=== PATIENT | female | born 1960 | race Caucasian/White ===

== ENCOUNTER 2018-07-26 22:42 | Emergency (ER) | payer SELFPAY ==
[~2018-07-26] VITALS: Ht 165.1 cm; Wt 81.8 kg
[~2018-07-26 22:42] MED LIST: NO HOME MEDS; PREVACID30 M2 OR; REGLAN10 MG OR; TORADOL OR; ZPAK OR
[2018-07-26 23:47] LABS: HEMATOCRIT 38.3 % (37.0-47.0); HEMOGLOBIN 12.7 g/dl (12.0-16.0); IMMATURE GRANULOCYTES 0.4 % (0.0-5.0); MEAN CELL VOLUME 90.8 fL CALC (80.0-100.0); MEAN CORPUSCULAR HGB 30.1 pG CALC (26.0-32.0); MEAN CORPUSCULAR HGB CONC 33.2 g/L CALC (32.0-36.0); NEUT# 4.24 thou/uL (2.00-7.15); RED BLOOD COUNT 4.22 mill/uL (4.20-5.60); RED CELL DISTRI WIDTH 13.2 % (11.5-15.5)
[2018-07-26 23:51] LABS: BARBITURATES NEGATIVE (NEGATIVE); COCAINE NEGATIVE (NEGATIVE); METHADONE NEGATIVE (NEGATIVE); OXCYCODONE NEGATIVE (NEGATIVE); TETRAHYDROCANNABIONOL NEGATIVE (NEGATIVE); TRICYLIC ANTIDEPRESSANTS NEGATIVE (NEGATIVE)
[2018-07-26] MEDS ORDERED: MULTIVITAMI1 PO (23:52)
[2018-07-27 00:02] LABS: ALBUMIN 4.5 g/dL (3.2-5.0); ALKALINE PHOSPHATASE 94 u/l (38-126); ANION GAP 17 (6-22 (CALC)); BUN 18 mg/dL (7-17); BUN/CREATININE RATIO 24 (12-20 (CALC)); CARBON DIOXIDE 23 mmol/l (22-30); CHLORIDE 106 mmol/l (95-108); CREATININE 0.7 mg/dL (0.5-1.0); GFR > 60 ML/MIN (>=60 (CALC)); GFR FOR AFR.AMER. > 60 ML/MIN (>=60 (CALC)); POTASSIUM 3.9 mmol/l (3.5-5.1); SGOT/AST 18 u/l (14-36); SODIUM 142 mmol/l (137-146); TOTAL PROTEIN 7.3 g/dL (6.3-8.2)
[2018-07-27 00:11] LABS: URINE BILIRUBIN - DIPSTICK NEGATIVE (NEGATIVE); URINE BLOOD DIPSTICK TRACE-INTACT (NEGATIVE); URINE COLOR YELLOW; URINE GLUCOSE - DIPSTICK NEGATIVE (NEGATIVE); URINE KETONE NEGATIVE (NEGATIVE); URINE LEUK ESTERASE NEGATIVE (NEGATIVE); URINE NITRITE - DIPSTICK NEGATIVE (Negative); URINE PH 5.5 (4.5-8.0); URINE PROTEIN - DIPSTICK NEGATIVE (NEG-TRACE); URINE UROBILINOGEN - DIPSTICK 0.2 E.U./dL (0.2)
[2018-07-27 00:12] LABS: BILIRUBIN, TOTAL 0.3 mg/dL (0.0-1.4)
[2018-07-27 00:15] LABS: MYOGLOBIN 23 ng/mL (0 - 62)
[2018-07-27] MEDS ORDERED: CIPROFLOXACN500 MG PO (01:55)
[2018-07-27] MEDS ORDERED: NAPROSYN500 MG PO (01:55)
[2018-07-27] MEDS ORDERED: METRONIDAZOL500 MG PO (01:55)
[2018-07-27 02:10] VITALS: BP 112/90
== END 2018-07-27 02:10 | disposition home or self-care (01) | DRG 392 ==
LOC: ED 22:42
PROVIDERS: Emergency Medicine
DX: K57.32 Diverticulitis of large intestine without perforation or abscess without bleeding (principal)

== ENCOUNTER 2019-08-24 07:26 | Day surgery (SDC) | payer BC ==
[~2019-08-24] VITALS: Ht 162.6 cm; Wt 85.3 kg
[~2019-08-24 07:26] MED LIST changes: +CIPROFLOXACN500 MG PO; +HYDROCHLOROT12.5 MG PO; +LOSARTAN POTASS50 MG PO; +METRONIDAZOL500 MG PO; +MULTI VIT PO; +MULTIVITAMI1 PO; +NAPROSYN500 MG PO; +VITAMIN D32000 UNIT PO
[2019-08-24 10:20] VITALS: BP 139/64
== END 2019-08-24 10:21 | disposition home or self-care (01) | DRG 951 ==
LOC: ENDO 07:26
PROVIDERS: ATTEND Surgery
PROC: 0DBN8ZX Excision of Sigmoid Colon, Via Natural or Artificial Opening Endoscopic, Diagnostic (ICD-10-PCS; principal; 2019-08-24)
DX: Z12.11 Encounter for screening for malignant neoplasm of colon (principal); K63.5 Polyp of colon; K57.30 Diverticulosis of large intestine without perforation or abscess without bleeding; K64.8 Other hemorrhoids; I10 Essential (primary) hypertension; Z11.59 Encounter for screening for other viral diseases

== ENCOUNTER 2020-10-07 13:27 | Emergency (ER) | payer BC ==
[2020-10-07 14:55] LABS: ALBUMIN 4.1 g/dL (3.2-5.0); ALKALINE PHOSPHATASE 58 u/l (38-126); BUN 10 mg/dL (7-17); BUN/CREATININE RATIO 18 (12-20 (CALC)); CARBON DIOXIDE 25 mmol/l (22-30); CHLORIDE 97 mmol/l (95-108); CREATININE 0.6 mg/dL (0.5-1.0); GFR > 60 ML/MIN (>=60 (CALC)); GFR FOR AFR.AMER. > 60 ML/MIN (>=60 (CALC)); POTASSIUM 3.5 mmol/l (3.5-5.1); TOTAL PROTEIN 7.3 g/dL (6.3-8.2)
[2020-10-07 15:10] LABS: ANION GAP 16 (6-22 (CALC)); BILIRUBIN, TOTAL 0.5 mg/dL (0.0-1.4); HEMATOCRIT 39.5 % (37.0-47.0); HEMOGLOBIN 13.4 g/dl (12.0-16.0); MEAN CELL VOLUME 88.8 fL CALC (80.0-100.0); MEAN CORPUSCULAR HGB 30.1 pG CALC (26.0-32.0); MEAN CORPUSCULAR HGB CONC 33.9 g/dL CAL (32.0-36.0); NEUT# 1.06 thou/uL (2.00-7.15); RED BLOOD COUNT 4.45 mill/uL (4.20-5.60); RED CELL DISTRI WIDTH 12.7 % (11.5-15.5); SGOT/AST 38 u/l (14-36); SODIUM 134 mmol/l (137-146)
[2020-10-07] MEDS ORDERED: DECADRON6 MG PO (15:33)
[2020-10-07] MEDS ORDERED: ZPAK PO (16:29)
[2020-10-07 16:44] VITALS: BP 120/70
== END 2020-10-07 16:55 | disposition home or self-care (01) | DRG 177 ==
LOC: ED 13:27
PROVIDERS: Family Medicine
DX: U07.1 COVID-19 (principal); J12.82 Pneumonia due to coronavirus disease 2019; I10 Essential (primary) hypertension

== ENCOUNTER 2021-02-24 10:27 | Emergency (ER) | payer BC ==
[~2021-02-24] VITALS: Ht 162.6 cm; Wt 82.0 kg
[~2021-02-24 10:27] MED LIST changes: +DECADRON6 MG PO; +ZPAK PO
[2021-02-24] MEDS ORDERED: ULTRAM50 M1 PO (12:59)
[2021-02-24 13:20] VITALS: BP 109/55
== END 2021-02-24 13:20 | disposition home or self-care (01) | DRG 605 ==
LOC: ED 10:27
DX: S20.221A Contusion of right back wall of thorax, initial encounter (principal); I10 Essential (primary) hypertension; W01.0XXA Fall on same level from slipping, tripping and stumbling without subsequent striking against object, initial encounter; Y92.009 Unspecified place in unspecified non-institutional (private) residence as the place of occurrence of the external cause

== ENCOUNTER 2023-03-29 13:28 | Emergency (ER) | payer BC ==
[~2023-03-29] VITALS: Ht 162.6 cm; Wt 85.2 kg
[~2023-03-29 13:28] MED LIST changes: +ULTRAM50 M1 PO
[2023-03-29] MEDS ORDERED: ACETAMINOPHEN 325 MG/TAB PO ONE (13:45)
[2023-03-29 14:27] LABS: BASO% 0.6 % (0-3); EOS% 0.6 % (0-8); HEMATOCRIT 41.4 % (37.0-47.0); IMMATURE GRANULOCYTES 0.2 % (0.0-5.0); LYMPH% 9.6 % (15-41); MEAN CELL VOLUME 91.2 fL CALC (80.0-100.0); MEAN CORPUSCULAR HGB 30.8 pG CALC (26.0-32.0); MEAN CORPUSCULAR HGB CONC 33.8 g/dL CAL (32.0-36.0); MONO% 13.3 % (2-13); NEUT# 4.1 thou/uL (2.00-7.15); NEUT% 75.7 % (42-76); RED BLOOD COUNT 4.54 mill/uL (4.20-5.60); RED CELL DISTRI WIDTH 12.7 % (11.5-15.5)
[2023-03-29] MEDS ORDERED: PAXLOVID 10 X 11 TAB PO (14:44)
[2023-03-29 15:13] VITALS: BP 124/78
== END 2023-03-29 15:26 | disposition home or self-care (01) | DRG 179 ==
LOC: ED 13:28
PROVIDERS: Family Medicine
DX: U07.1 COVID-19 (principal); R50.9 Fever, unspecified; J02.9 Acute pharyngitis, unspecified; R05.9 Cough, unspecified; I10 Essential (primary) hypertension